=== PATIENT | male | born 1980 | race Caucasian/White ===

== ENCOUNTER 2019-06-05 08:36 | Day surgery (SDC) | payer OTHER ==
[2019-06-05] MEDS: SOD CHLORIDE 0.9% 1,000 ML IV (06:00)
[~2019-06-05 08:36] MED LIST: CEFAZOLIN 2 GM/50 ML (PMX) 50 ML IVPB
[2019-06-05] MEDS ORDERED: SUGAMMADEX SODIUM 200 MG/2 ML VIAL IV (12:56)
[2019-06-05] MEDS ORDERED: MIDAZOLAM 1 MG/ML 2 ML INJ (12:56)
[2019-06-05] MEDS ORDERED: LIDOCAINE 2% (SDV) 5 ML INJ (12:56)
[2019-06-05] MEDS ORDERED: ONDANSETRON 4 MG INJ (12:56)
[2019-06-05] MEDS ORDERED: FENTAnyl 50 MCG/ML VIAL (12:56)
[2019-06-05] MEDS ORDERED: DESFLURANE 15 MIN (12:56)
[2019-06-05] MEDS ORDERED: METOCLOPRAMIDE 10 MG INJ (12:56)
[2019-06-05] MEDS ORDERED: ROCURONIUM 50 MG INJ (12:56)
[2019-06-05] MEDS ORDERED: PROPOFOL 20 ML (12:56)
[2019-06-05] MEDS ORDERED: DEXAMETHASONE 4 MG/ML 5 ML INJ (12:56)
[2019-06-05] MEDS ORDERED: CEFAZOLIN 1 GM INJ (13:23)
[2019-06-05] MEDS: BUPIVACAINE 0.5%/EPI (SDV) 10 ML INJ (13:33)
[2019-06-05] MEDS: LIDOCAINE 1%/EPI (1:100,000) (MDV) 20 ML (13:33)
[2019-06-05] MEDS ORDERED: FENTAnyl 50 MCG/ML VIAL IV (14:00)
[2019-06-05] MEDS ORDERED: OXYCODONE/ACETAMINOPHEN (5/325) TAB PO (14:00)
[2019-06-05] MEDS ORDERED: PROCHLORPERAZINE 10 MG INJ IV (14:00)
[2019-06-05] MEDS ORDERED: MEPERIDINE 25 MG INJ IV (14:00)
[2019-06-05] MEDS ORDERED: HYDROmorphONE 1 MG/5 ML IV SYRINGE IV (14:00)
[2019-06-05] MEDS ORDERED: ONDANSETRON 4 MG INJ IV ×2 (14:00→15:00)
[2019-06-05] MEDS ORDERED: LACTATED RINGER'S 1,000 ML IV (14:53)
[2019-06-05] MEDS ORDERED: morphine 2 MG INJ IV (15:00)
[2019-06-05] MEDS ORDERED: HYDROCODONE/APAP (5/325) TAB PO ×2 (15:00)
== END 2019-06-05 16:10 | disposition home or self-care (01) ==
LOC: SDS 08:36
DX: L05.91 Pilonidal cyst without abscess (principal)
CPT/HCPCS: 11772; 87070; 87075; 87102; 87116; 88304